=== PATIENT | female | born 1990 | race African-American/Black ===

== ENCOUNTER 2020-12-28 20:27 | Emergency (ER) | payer SELFPAY ==
[~2020-12-28] VITALS: Ht 162.6 cm; Wt 59.0 kg
[2020-12-29] MEDS ORDERED: CLINDAMYCIN HC300 MG PO (17:10)
[2020-12-29] MEDS ORDERED: PREDNISONE20 MG PO (17:10)
== END 2020-12-28 21:35 | disposition home or self-care (01) ==
LOC: FSED 21:00
DX: K08.89 Other specified disorders of teeth and supporting structures (principal)
CPT/HCPCS: 99282